=== PATIENT | male | born 1995 | race Caucasian/White ===

== ENCOUNTER 2023-04-16 10:46 | Emergency (ER) | payer BC ==
[~2023-04-16] VITALS: Ht 185.4 cm; Wt 99.1 kg
[2023-04-16 11:04] VITALS: BP 130/95; PULSE 72; RESP 18; TEMP 97.7; O2SAT 97
[2023-04-16 12:21] LABS: BILIRUBIN,URINE NEGATIVE (Neg); CLARITY,URINE CLEAR (Clear); COLOR,URINE YELLOW (Yellow); GLUCOSE, URINE NEGATIVE (Neg); KETONES,URINE NEGATIVE (Neg); LEUKOCYTE ESTERASE ,URINE NEGATIVE (Neg); NITRITES, URINE NEGATIVE (Neg); OCCULT BLOOD,URINE NEGATIVE (Neg); PH,URINE 6.5 (4.8-8.0); PROTEIN,URINE NEGATIVE (Neg); UROBILINOGEN,URINE 0.2 E.U/dL (0.2-1.0)
[2023-04-16 12:24] LABS: UA COLLECTION TYPE CLN CATCH MIDSTREAM
[2023-04-16] MEDS ORDERED: IBUP-1984 PO (12:31)
== END 2023-04-16 13:13 | disposition home or self-care (01) ==
LOC: ER 10:47
DX: S39.011A Strain of muscle, fascia and tendon of abdomen, initial encounter (principal); N50.812 Left testicular pain; X58.XXXA Exposure to other specified factors, initial encounter; Y93.89 Activity, other specified; Y92.89 Other specified places as the place of occurrence of the external cause; Y99.8 Other external cause status
CPT/HCPCS: 76870; 81003; 93976; 99284